=== PATIENT | male | born 1970 | race Caucasian/White ===

== ENCOUNTER → 2021-07-18 10:00 | Outpatient (CLI) | payer OTHER, SELFPAY ==
[2021-07-18 10:40] LABS: Uric Acid 7.6 mg/dL (3.5-7.2)
== END ==
PROVIDERS: PCP Internal Medicine; Referring Provider Nurse Practitioner Family; Visit Provider Nurse Practitioner Family
DX: M79.672 Pain in left foot (principal)
CPT/HCPCS: 84550